=== PATIENT | female | born 1975 | race Caucasian/White ===

== ENCOUNTER 2025-08-30 04:11 | Observation (INO) | payer OTHER, SELFPAY ==
[2025-08-29 18:15] VITALS: BP 117/91
[2025-08-29] MEDS: ZOFRAN ODT (ORALLY DISINTEGRATING) 4 MG PO ×2 (18:23→18:29)
[2025-08-29] MEDS: OMNIPAQUE 50 ML PO (18:29)
[2025-08-29 18:44] LABS: Hematocrit 38.4 % (37.0-47.0); Hemoglobin 12.6 g/dL (12.0-16.0); Mean Corp Hgb Conc. 32.8 g/dL (33.0-37.0); Mean Corpuscular Volume 86.7 fL (81.0-99.0); Nucleated Red Blood Cells % 0 %; Platelet Count 327 10^3/uL (130-400); Red Cell Dist. Width 13.9 % (11.5-14.5)
[2025-08-29 18:56] LABS: ALT (SGPT) 33 U/L (0-35); AST (SGOT) 33 U/L (14-36); Albumin 3.9 g/dl (3.5-5.0); Alkaline Phosphatase 120 U/L (38-126); Blood Urea Nitrogen 17 mg/dl (7-17); Calcium 9.0 mg/dl (8.4-10.2); Carbon Dioxide 27 mmol/L (22-30); Chloride 103 mmol/L (98-107); Glucose 103 mg/dl (70-99); Lipase 59 U/L (23-300); Potassium 4.0 mmol/L (3.5-5.1); Sodium 137 mmol/L (135-145); Total Protein 7.2 g/dl (6.3-8.2); eGFR > 60.00
[2025-08-30] VITALS (8 sets, daily range): BP systolic 112–143; BP diastolic 80–93; BMI 31.9; BMI 31.7
[2025-08-30] MEDS: NSS 1000 IV (00:02)
--- NOTE | 2025-08-30 00:11 | ED.GENMED ---
History of Present Illness
<Shanon Ferreira PA-C - Last Filed: 08/30/25 07:55>
General
Chief Complaint: Abdominal Symptoms
Source: patient
Exam Limitations: none
Time Seen by Provider: 08/30/25 00:09
Nursing documentation reviewed up to this point in time: agreed with
History of Present Illness
History of Present Illness:
50-year-old female past medical history of polycystic kidney and liver disease who presents to the ER today with concerns of transient episode of left lower quadrant abdominal pain and vomiting. This occurred yesterday morning around 8:30 AM to 10
AM. She reports that her home nurse was visiting her and she had multiple episodes of vomiting and the nurse was concerned and called Dr. Hernandez who recommended going to the nearest ER to get imaging to rule out small bowel obstruction. She
reports that she had really intense pain earlier that has since resolved. She tolerated sips of water earlier today without vomiting. She has been passing gas. Pain minimal at this time. She is not had any fevers. No diarrhea. No chest pain or
shortness of breath. She denies any rectal bleeding or dark tarry stools. She spoke to the abdominal surgical fellow on-call who was involved with her case and she described what was going on and he recommended admission to [facility] for
continued management and did not feel that transfer was appropriate at this time as there is no surgical issue.
Past History
<Shanon Ferreira PA-C - Last Filed: 08/30/25 07:55>
Past History
ED Past Medical History: Other (Polycystic liver and kidney) and Other (Headaches)
ED Past Surgical History: Orthopedic (Ankle) and Other (Nose)
Social History
Tobacco: Non-smoker
Alcohol: None
Drug: None
Personal:
Living: with family
Review of Systems
<URSULA Covarrubias Last Filed: 08/30/25 07:55>
Review of Systems
All Other Systems: ROS reviewed and negative except as documented in HPI and ROS
Phy Exam
<Shanon Ferreira PA-C - Last Filed: 08/30/25 07:55>
Physical Exam
Physical Exam:
General: Patient is well appearing and in no acute distress; non-toxic
Skin: Warm and dry, no rashes or lesions
Head: Normocephalic, atraumatic
Eyes: Sclera non-icteric. EOMs intact.
Cardiac: Regular rate and rhythm, no murmur
Pulm: Normal respiratory effort, no wheezes, rales, or rhonchi
Abdomen: Large central and horizontal incisions noted in the abdomen with no purulent drainage, no surrounding erythema, minimal tenderness in the left lower quadrant, no palpable masses
Neuro: CN II-XII intact, no focal neurologic deficits.
Psychiatric: Appropriate mood and affect.
Course
<Shanon Ferreira PA-C - Last Filed: 08/30/25 07:55>
Orders/Labs/Results
Orders:
Orders
08/29/25 17:58
IV Insert/Care/Rem.- Treatment PRN
Iohexol [Omnipaque] See Protocol PO NOW STA
08/29/25 17:59
CT Abd/pel W Iv And Oral Contr Urgent
Comment:
Reason For Exam: abdominal pain, recent herni
08/29/25 18:20
Ondansetron Orally Disint [Zofran Odt (Orally Disintegrating)] 4 mg PO NOW STA
CR Abdomen - 1 View Urgent
Comment:
Reason For Exam: possible SBO, recent surgery, vomiting
08/29/25 18:25
Ondansetron Orally Disint [Zofran Odt (Orally Disintegrating)] 4 mg .ROUTE .[facility]
08/29/25 18:28
Ondansetron Orally Disint [Zofran Odt (Orally Disintegrating)] 4 mg PO NOW STA
08/29/25 18:34
Complete Blood Count/With Diff Urgent
Comprehensive Metabolic Panel Urgent
Lipase Urgent
08/29/25 23:55
0.9% Sodium Chloride 1000 ml [Nss] 1,000 ml IV 500 mls/hr
08/30/25 02:33
Sumatriptan Succinate [Imitrex] 50 mg PO NOW STA
08/30/25 04:05
Admit/Transfer Patient As Directed
Co-Sign Provider:
Level of Care: Observation services
Assign to:: Medical/Surgical
Physician / Group: Vincent
Diagnosis: Partial SBO
08/30/25 04:06
Code Status As Directed
Resuscitation Status: Full Code
PRN Pain Medication Management As Directed
May give lesser potent ordered pain med per pt: Yes
preference::
Protocol:: Medication orders for pain may be administered in a
manner that supports deferring to patient preference
when the pt is:
- Requesting an ordered lesser potent pain medication.
Least to most potent pain medications are defined
as: acetaminophen < NSAID < tramadol < opioids
(morphine, oxycodone, hydromorphone).
- Requesting a lesser dose of the same medication IF
ORDERED.
- Requesting a less intrusive route of administration
if both routes are prescribed by the provider (PO <
IV).
08/30/25 04:08
Ketorolac [Toradol] 10 mg IV NOW STA
Metoclopramide [Reglan] 5 mg IV NOW STA
08/30/25 04:43
Ondansetron Injectable [Zofran] 4 mg IV Q6HPRN PRN
08/30/25 04:43
SURGICAL CONSULT Routine
Consulting Provider: Rivera Shelton
Was physician already notified: Yes
Reason for consult: SBO
Activity As Directed
Activity Level: Ambulate
I/O [Intake/ Output] As Directed
Frequency: Per unit guidelines
Pneumatic Compression Sleeves As Directed
Type: Knee high
Vital Signs As Directed
Frequency: Per unit guidelines
Oxygen Therapy [O2 Therapy] [RESP] Routine
Titrate/Wean O2 to maintain O2 sat greater than (%): 94
DX Deep Vein Thrombosis Video Routine
08/30/25 05:00
Lactated Ringers [Lr] 1,000 ml IV 100 mls/hr
08/30/25 05:24
Basic Metabolic Panel IN AM
Complete Blood Count/No Diff IN AM
08/30/25 Breakfast
Clear Liquid
At Your Request: Limited Participation
Acetaminophen [Tylenol] 650 mg PO Q4HPRN PRN
08/30/25 08:00
Pantoprazole [Protonix IV] 40 mg IV DAILY
08/30/25 10:00
Ketorolac [Toradol] 10 mg IV Q6HPRN PRN
Abnormal Lab Results
08/29/25
18:34
WBC 11.2 H 10^3/uL
(4.8-10.8)
MCHC 32.8 L g/dL
(33.0-37.0)
Abs Immat Gran (auto) 0.1 H 10^3/uL
(0-0.05)
Absolute Neuts (auto) 7.6 H 10^3/uL
(1.4-6.5)
Absolute Monos (auto) 0.9 H 10^3/uL
(0.1-0.6)
Lymphocytes % 20.4 L %
(20.5-51.1)
Glucose 103 H mg/dl
(70-99)
08/29/25 18:34
08/29/25 18:34
Vital Signs
Initial and Last Documented VS:
Initial Vital Signs
Temp Pulse Resp BP Pulse Ox
98.7 F 108 17 117/91 97
08/29/25 18:15 08/29/25 18:15 08/29/25 18:15 08/29/25 18:15 08/29/25 18:15
Last Documented Vital Signs
Temp Pulse Resp BP Pulse Ox
98.7 F 108 16 130/93 94
08/29/25 18:15 08/29/25 18:15 08/30/25 05:27 08/30/25 02:00 08/30/25 03:15
<Rossy Ontiveros MD - Last Filed: 08/30/25 01:23>
Orders/Labs/Results
Orders:
Orders
08/29/25 17:58
IV Insert/Care/Rem.- Treatment PRN
Iohexol [Omnipaque] See Protocol PO NOW STA
08/29/25 17:59
CT Abd/pel W Iv And Oral Contr Urgent
Comment:
Reason For Exam: abdominal pain, recent herni
08/29/25 18:20
Ondansetron Orally Disint [Zofran Odt (Orally Disintegrating)] 4 mg PO NOW STA
CR Abdomen - 1 View Urgent
Comment:
Reason For Exam: possible SBO, recent surgery, vomiting
08/29/25 18:25
Ondansetron Orally Disint [Zofran Odt (Orally Disintegrating)] 4 mg .ROUTE .[facility]
08/29/25 18:28
Ondansetron Orally Disint [Zofran Odt (Orally Disintegrating)] 4 mg PO NOW STA
08/29/25 18:34
Complete Blood Count/With Diff Urgent
Comprehensive Metabolic Panel Urgent
Lipase Urgent
08/29/25 23:55
0.9% Sodium Chloride 1000 ml [Nss] 1,000 ml IV 500 mls/hr
08/30/25 02:33
Sumatriptan Succinate [Imitrex] 50 mg PO NOW STA
08/30/25 04:05
Admit/Transfer Patient As Directed
Co-Sign Provider:
Level of Care: Observation services
Assign to:: Medical/Surgical
Physician / Group: Vincent
Diagnosis: Partial SBO
08/30/25 04:06
Code Status As Directed
Resuscitation Status: Full Code
PRN Pain Medication Management As Directed
May give lesser potent ordered pain med per pt: Yes
preference::
Protocol:: Medication orders for pain may be administered in a
manner that supports deferring to patient preference
when the pt is:
- Requesting an ordered lesser potent pain medication.
Least to most potent pain medications are defined
as: acetaminophen < NSAID < tramadol < opioids
(morphine, oxycodone, hydromorphone).
- Requesting a lesser dose of the same medication IF
ORDERED.
- Requesting a less intrusive route of administration
if both routes are prescribed by the provider (PO <
IV).
08/30/25 04:08
Ketorolac [Toradol] 10 mg IV NOW STA
Metoclopramide [Reglan] 5 mg IV NOW STA
08/30/25 04:43
Ondansetron Injectable [Zofran] 4 mg IV Q6HPRN PRN
08/30/25 04:43
SURGICAL CONSULT Routine
Consulting Provider: Rivera Shelton
Was physician already notified: Yes
Reason for consult: SBO
Activity As Directed
Activity Level: Ambulate
I/O [Intake/ Output] As Directed
Frequency: Per unit guidelines
Pneumatic Compression Sleeves As Directed
Type: Knee high
Vital Signs As Directed
Frequency: Per unit guidelines
Oxygen Therapy [O2 Therapy] [RESP] Routine
Titrate/Wean O2 to maintain O2 sat greater than (%): 94
DX Deep Vein Thrombosis Video Routine
08/30/25 05:00
Lactated Ringers [Lr] 1,000 ml IV 100 mls/hr
08/30/25 05:24
Basic Metabolic Panel IN AM
Complete Blood Count/No Diff IN AM
08/30/25 Breakfast
Clear Liquid
At Your Request: Limited Participation
Acetaminophen [Tylenol] 650 mg PO Q4HPRN PRN
08/30/25 08:00
Pantoprazole [Protonix IV] 40 mg IV DAILY
08/30/25 10:00
Ketorolac [Toradol] 10 mg IV Q6HPRN PRN
Abnormal Lab Results
08/29/25
18:34
WBC 11.2 H 10^3/uL
(4.8-10.8)
MCHC 32.8 L g/dL
(33.0-37.0)
Abs Immat Gran (auto) 0.1 H 10^3/uL
(0-0.05)
Absolute Neuts (auto) 7.6 H 10^3/uL
(1.4-6.5)
Absolute Monos (auto) 0.9 H 10^3/uL
(0.1-0.6)
Lymphocytes % 20.4 L %
(20.5-51.1)
Glucose 103 H mg/dl
(70-99)
08/29/25 18:34
08/29/25 18:34
Vital Signs
Initial and Last Documented VS:
Initial Vital Signs
Temp Pulse Resp BP Pulse Ox
98.7 F 108 17 117/91 97
08/29/25 18:15 08/29/25 18:15 08/29/25 18:15 08/29/25 18:15 08/29/25 18:15
Last Documented Vital Signs
Temp Pulse Resp BP Pulse Ox
98.7 F 108 16 130/93 94
08/29/25 18:15 08/29/25 18:15 08/30/25 05:27 08/30/25 02:00 08/30/25 03:15
<Shanon Ferreira PA-C - Last Filed: 08/30/25 07:55>
MDM/Problems Addressed
Differential Diagnosis Includes:
ddx include SBO, diverticulitis, LBO, gastroenteritis, intra-abdominal abscess
MDM/Problems Addressed:
50-year-old female past medical history of polycystic kidney and liver disease who presents to the ER today with concerns of transient episode of left lower quadrant abdominal pain and vomiting. This occurred yesterday morning around 8:30 AM to 10
AM. She is status post 7 days large ventral hernia repair. She was found to have a partial/developing small bowel obstruction. At this time, she is not vomiting, has minimal pain, and is passing gas. I spoke to Lalo mackey and Dr. Chaidez on
patient's surgical team who is a GI fellow feels that patient is not an appropriate candidate for transfer to [facility] because there is no emergent surgical issue and he recommends admission to [facility]. I spoke to
general surgery on-call Dr. Arrington and he was okay with us admitting patient here to medicine. No indication for NG tube at this time. ED attending made aware. Patient referred for admission
Chronic conditions affecting care:
Brain aneurysm, polycystic kidney and liver disease
<Shanon Ferreira PA-C - Last Filed: 08/30/25 07:55>
*Pulse Oximetry
SaO2: 97
Oxygen Mode of Delivery: Room air
Patient hypoxic: no
*Critical Care Note
Total Time (30-74mins, 75-104mins- exclusive of procedures): Not Applicable
Data Reviewed
Review of Other/Old Records Reveals: Records (Reviewed colonoscopy from 03/26/[address] Das, patient was found to have a polyp that was removed)
Source: patient and records
ED Attending Note
<Shanon Ferreira PA-C - Last Filed: 08/30/25 07:55>
-
Portions of this chart may have been created with voice recognition software.� Occasional wrong word or��sound alike� substitutions may have occurred due to the inherent limitations of voice recognition software.
<Rossy Ontiveros MD - Last Filed: 08/30/25 01:23>
ED Attending Note
Patient seen and examined by attending physician: Yes
I performed the substantive portion of visit, reviewed & personally made and approve the management plan that is documented in note by myself or CHARLOTTE.: Yes
ED Attending Note:
I have seen and evaluated the patient with a [id number] encounter. I have spoken to the [CHARLOTTE] and involved in the medical history, the physical exam, medical decision making.
Evaluation and management service: agree unless noted differently below.
Results interpretation: agree unless noted differently below.
50-year-old woman presenting to the emergency department after ventral hernia repair presenting to the emergency department with vomiting. She talked to her surgeons who told her to go to the emergency department for evaluation to rule out SBO. On
my evaluation patient is resting comfortably. Abdomen is nondistended nontender. Her vomiting has improved. Patient does state that she feels much better than earlier. CT scan obtained does show developing or partial obstruction. Will discuss
with patient's surgeon as patient will need admission.
Discharge Plan
Departure
Patient Disposition: Admit
Date of Disposition: 08/30/25
Time of Disposition: 02:10
Admit to: Med/Surg
Presentation/result/management discussed w/ accepting MD/DO: Hospitalist
Patient with high blood pressure during this ER visit?: Yes
Condition: Fair
Discharge Problem:
Small bowel obstruction, partial
Interventions
Interventions:
*General Assessment Last Done: 08/29/25 18:20
*Neglect/Abuse Screening Last Done: 08/29/25 18:20
*ED COVID-19 Vaccine History Last Done: 08/29/25 18:20
*ED Influenza Vaccine History Last Done: 08/29/25 18:20
[facility] Fall Risk Assessment Tool Last Done: 08/30/25 00:40
*Risk Screen - Suicide (C-SSRS) Last Done: 08/29/25 18:20
RU-Yqnfmz-Ifhhlxhvor Assessment Last Done: 08/30/25 05:26
[2025-08-30] MEDS: IMITREX 50 MG PO (02:44)
--- NOTE | 2025-08-30 04:09 | HPS.HSE ---
Family Physician
-
Family Physician: INTERVIEWE UNKNOWN - PT NOT
Chief Complaint
-
Abd Pain, N/V
History of Present Illness
Patient is a 50y F with PMH significant for polycystic disease and migraines who presents to ED complaining of abdominal pain and N/V. Patient underwent complicated ventral hernia repair at [place] on 08/22/[address] Hernandez. She states that she
was recovering well until last PM when she developed LLQ abdominal pain. She woke around 12:30 in the AM with nausea and had innumerable episodes of emesis (food and bilious material) until around 8:30 AM. At that time her nausea and pain both
started to improve. She has since been able to tolerate water intake without recurrent N/V. She states that she has passed some flatus today - but no BM.
She spoke with her VN and then her physicians at [facility] and was advised to present to the ED for further evaluation.
CT done in the ED this evening shows dilated loops of small bowel c/w obstruction with some distal contrast seen. Transition point in the L mid-abdomen.
Medical History
Past Medical History
Past Medical History: Reports Other
Additional Past Medical History:
Polycystic Liver Disease
Polycystic Kidney Disease
Cerebral / Carotid Aneurysm
Migraine Headaches
Past Surgical History: Reports Other
Additional Past Surgical History:
Complicated Ventral Hernia Repair 08/22/25 at [place]
Partial Hepatic Resection
Ventral Hernia Repair
Left Ankle Surgery
Septoplasty
Social History
Tobacco: Non-smoker
Alcohol: None
Drug: None
Family History
Family History: Not pertinent
Allergies / Home Medications
Allergies reflects when Allergies were last updated in [facility].
Home Medications with original date entered in [facility]
Allergy/Medication List:
Allergies
Allergy/AdvReac Type Severity Reaction Status Date / Time
iodine Allergy Unknown Verified 08/29/25 18:17
Home Medications
cetirizine 10 mg tablet 10 mg PO DAILY 08/30/25
lisinopril 10 mg tablet 10 mg PO DAILY 08/30/25
mometasone 50 mcg/actuation nasal spray 2 spray intranasal DAILY 08/30/25
omeprazole 20 mg capsule,delayed release 20 mg PO DAILY 08/30/25
riboflavin (vitamin B2) 400 mg tablet 400 mg PO DAILY 08/30/25
zolmitriptan 5 mg nasal spray 5 mg intranasal DAILYPRN PRN Migraine 08/30/25
Review of Systems
-
History Source: Patient
A 12 point ROS was completed and negative except as noted: Yes
Constitutional: Denies Fever, Fatigue or Chills
Respiratory: Denies Cough or Trouble Breathing
Cardiac: Denies Chest Pain or Palpitations
Abdomen/GI: Reports Abdominal Pain, Nausea and Vomiting; Denies Diarrhea, Bloody Stools or Black Stools
: Denies Dysuria or Frequency
Musculoskeletal: Denies Joint Pain or Edema
Neurological: Denies Dizzy or Headache
Psych: Denies Depression or Anxiety
Physical Exam
Vital Signs
Vital Signs
Temp Pulse Resp BP Pulse Ox
98.7 F 108 18 130/93 94
08/29/25 18:15 08/29/25 18:15 08/30/25 03:22 08/30/25 02:00 08/30/25 03:15
Physical Exam
General: Other (50y F in no acute distress.)
HEENT: Moist mucous membranes and PERRLA
Respiratory: Clear; No Wheezes, Rales or Rhonchi
Cardiac: S1/S2 and Regular Rhythm; No Murmur
GI: Other (Soft, positive bowel sounds. No focal tenderness. 'T' incision with overlying petrolatum gauze. Incisions C/D/I. RLQ LAURA drain with serosanguinous drainage.)
Musculoskeletal: No Clubbing, No Cyanosis and No Edema
Neuro: AO x 3
Laboratory Results
-
08/29/25 18:34
08/29/25 18:34
Laboratory Results
Total Bilirubin 0.9 mg/dl (0.2-1.3) 08/29/25 18:34
AST 33 U/L (14-36) 08/29/25 18:34
ALT 33 U/L (0-35) 08/29/25 18:34
Alkaline Phosphatase 120 U/L (38-126) 08/29/25 18:34
Lipase 59 U/L (23-300) 08/29/25 18:34
Impression/Plan
-
A/P: Patient is a 50y F with PMH significant for polycystic liver and kidney disease who is s/p recent complicated ventral hernia repair and presents to ED for evaluation of abdominal pain and N/V that occurred 24 hours ago.
SBO / pSBO
s/p Complicated Ventral Hernia Repair at [place] 08/22/25
- Observe overnight for further evaluation and treatment.
- Patient is symptom-free at present. Tolerated water throughout the day today without additional N/V.
- No further LLQ pain.
- CT this evening shows dilated loops of small bowel with transition in the LLQ - contrast is seen distal to this.
- Continue to monitor.
- Clear liquids as tolerated.
- IVFs, pain control, supportive care.
- Surgery evaluation.
- Continue post-op dressing care, etc.
Migraine Headaches
- Patient with developing migraine secondary to N/V, volume losses, etc.
- Supportive care / PRN medications.
- IVF support as noted above.
Polycystic Kidney Disease
Polycystic Liver Disease
- Stable. s/p remote partial hepatic resection.
Carotid Aneurysm
- Stable x 5 years.
DVT Prophylaxis: SCDs
Code Status: Full
[2025-08-30] MEDS: TORADOL 10 MG IV (04:29)
[2025-08-30] MEDS: REGLAN 5 MG IV (04:29)
[2025-08-30] MEDS: LR 1000 IV ×2 (05:25→17:11)
[2025-08-30 06:11] LABS: Blood Urea Nitrogen 13 mg/dl (7-17); Calcium 8.0 mg/dl (8.4-10.2); Carbon Dioxide 22 mmol/L (22-30); Chloride 106 mmol/L (98-107); Estimated Creatinine Clearance 108 ml/min; Glucose 84 mg/dl (70-99); Potassium 3.7 mmol/L (3.5-5.1); Sodium 134 mmol/L (135-145); eGFR > 60.00
--- NOTE | 2025-08-30 08:39 | W.PN.HOSP.TC ---
Today's Communication/Plan
-
Surgery eval
Assessment / Plan
Assessment / Plan
Physical exam:
General: Well Developed, Well Nourished and No Apparent Distress
HEENT: Normocephalic, Atraumatic and Moist Mucous Membranes
Respiratory: Clear to Auscultation; Negative Wheezes, Rales or Rhonchi
Cardiac: Regular Rhythm and S1/S2
GI: Soft, Nontender and distended
Musculoskeletal: No Clubbing, No Cyanosis and No Edema
Neuro: Awake, Alert and Oriented, no neurological deficits
Psych: Calm
A/P:
SBO / pSBO
s/p Complicated Ventral Hernia Repair at [place] 08/22/25
- Observe overnight for further evaluation and treatment.
- Patient is symptom-free at present. Tolerated water throughout the day today without additional N/V.
- No further LLQ pain.
- CT this evening shows dilated loops of small bowel with transition in the LLQ - contrast is seen distal to this.
- Continue to monitor.
- Clear liquids as tolerated.
- IVFs, pain control, supportive care.
- Surgery evaluation.
- Continue post-op dressing care, etc.
Migraine Headaches
- Patient with developing migraine secondary to N/V, volume losses, etc.
- Supportive care / PRN medications.
- IVF support as noted above.
Polycystic Kidney Disease
Polycystic Liver Disease
- Stable. s/p remote partial hepatic resection.
Carotid Aneurysm
- Stable x 5 years.
DVT Prophylaxis: SCDs
Code Status: Full
Anticipated Discharge: 24 - 48 hours
Subjective/Interval History
-
Date of Service: August 30, 2025
Patient feels better overall, passing gases. No nausea vomit
Objective Data
-
Labs:
Laboratory Results
08/30/25
05:24
WBC Pending
Hgb Pending
Hct Pending
Plt Count Pending
Sodium 134 L
Potassium 3.7
Chloride 106
Carbon Dioxide 22
BUN 13
Creatinine 0.6
Glucose 84
Calcium 8.0 L
Vital Signs:
Vital Signs
Temp Pulse Resp BP Pulse Ox
98.7 F 68 16 112/80 95
08/29/25 18:15 08/30/25 08:03 08/30/25 08:03 08/30/25 08:00 08/30/25 08:00
[2025-08-30 08:43] LABS: Hematocrit 31.6 % (37.0-47.0); Hemoglobin 10.6 g/dL (12.0-16.0); Mean Corp Hgb Conc. 33.5 g/dL (33.0-37.0); Mean Corpuscular Volume 85.6 fL (81.0-99.0); Platelet Count 210 10^3/uL (130-400); Red Cell Dist. Width 13.9 % (11.5-14.5)
[2025-08-30] MEDS: PROTONIX IV 40 MG IV (08:54)
--- NOTE | 2025-08-30 09:50 | CON.GS ---
Addendum entered and electronically signed by Dale Arrington MD 08/30/25 11:15:
I saw and examined the patient.
The [employer] Worker's note was reviewed and I agree with the note.
Comment: About 1 week s/p open repair recurrent ventral hernia p/w n/v now improved, pt reports passing flatus. Pain also improved. Mild ttp on exam, minimal distention, incisions cdi, ab binder in place, drain ss. labs and vitals OK. CT with pSBO
without signs of bowel threat, f/u KUB with contrast in colon and mild residual sb distention. Plan to trial CLD
Original Note:
Consultation
-
Date/Time Consultation Requested: 08/30/25 4:43
Date/Time Consultation Performed: 08/30/25 9:50
Requesting Provider: Hiren Kaur DO
Performing Provider: Dale Arrington
Reason for Consultation: Small bowel obstruction
Medical History
-
Chief Complaint: Abdominal Pain with Nausea/Vomiting
History of Present Illness:
This is a 50 y/o female with pmhx of polycystic kidney and liver disease, migraines. She has a history of liver resection at the [facility] in 08/2020. This is her only known abdominal surgery prior to 08/22/2025, when she underwent a complicated,
open ventral hernia repair at [facility] with Dr. Hernandez. She was hospitalized from 08/22-08/25, at which point she was discharged to home. She states she was doing well at home until the evening of 08/28 when she began to experience sharp pain
across her belly around where her belly button used to be, L>R. On 08/29 she began to vomit multiple times per hour for several hours between just 12:30AM until around 8AM. Eventually she stopped vomiting, at which point she had significant midline
tenderness. She spoke to her surgeon Dr. Hernandez and at their recommendation reported to the ED late in the evening on 08/29/2025 for further evaluation.
Today, she reports still having some pain but it is significantly reduced compared to prior days. She has passed gas today. She is currently free of nausea/vomiting. She has not yet eaten this morning as of the time of my interview with her.
Past Medical History
Past Medical History: Other (Polycystic Kidney Disease, Polycystic Liver Disease, Migraines, Carotid Aneurysm)
Past Surgical History: Hernia Repair (Complicated Ventral Hernia Repair on 08/22/2025) and Other (Liver Resection at [facility] 08/2020)
Social History
Tobacco: Non-Smoker
Alcohol: None
Drug: None
Living: With Family
Family History
Family History: Reviewed & Not Pertinent
Allergies / Home Medications
Allergy/AdvReac Type Severity Reaction Status Date / Time
iodine Allergy Unknown Verified 08/29/25 18:17
�Medication �Instructions �Recorded �Confirmed �Type
acetaminophen 325 mg tablet 650 mg PO QID Anti-Inflammatory 08/30/25 08/30/25 History
(Tylenol)
cetirizine 10 mg tablet 10 mg PO HS Allergies 08/30/25 08/30/25 History
lisinopril 10 mg tablet 10 mg PO DAILY 08/30/25 08/30/25 History
magnesium oxide 400 mg PO DAILY Supplement 08/30/25 08/30/25 History
mometasone 50 mcg/actuation nasal 2 spray intranasal HS Allergies 08/30/25 08/30/25 History
spray
omeprazole 20 mg capsule,delayed 20 mg PO DAILY 08/30/25 08/30/25 History
release
ondansetron HCl 8 mg tablet 8 mg PO Q12H nausea 08/30/25 08/30/25 History
polyethylene glycol 3350 17 gram 17 g PO DAILY Constipation 08/30/25 08/30/25 History
oral powder packet (Miralax)
riboflavin (vitamin B2) 400 mg 400 mg PO DAILY 08/30/25 08/30/25 History
tablet
sennosides 8.6 mg tablet (senna) 8.6 mg PO BID Constipation 08/30/25 08/30/25 History
therapeutic multivitamin 1 tab PO DAILY Supplement 08/30/25 08/30/25 History
zolmitriptan 5 mg nasal spray 5 mg intranasal DAILYPRN PRN 08/30/25 08/30/25 History
Migraine
Review of Systems
-
History Source: Patient
Constitutional: No Symptoms
Respiratory: No Symptoms
Cardiac: No Symptoms
Abdomen/GI: Abdominal Pain, Nausea and Vomiting
Musculoskeletal: No Symptoms
Neurological: Headache
Hematologic/Lymphatic: No Symptoms
A 10 point review of systems was completed, and was negative except as per HPI.
Physical Exam
Vital Signs
Temp Pulse Resp BP Pulse Ox
98.7 F 68 16 113/82 96
08/29/25 18:15 08/30/25 08:03 08/30/25 08:03 08/30/25 09:01 08/30/25 09:01
08/29/25 08/30/25 08/31/25
06:59 06:59 06:59
Actual Weight 79 kg
Body Mass Index (BMI) 31.9
Lab Results
08/30/25 05:24
08/30/25 05:24
WBC 7.3 10^3/uL (4.8-10.8) 08/30/25 05:24
Hgb 10.6 g/dL (12.0-16.0) L 08/30/25 05:24
Hct 31.6 % (37.0-47.0) L 08/30/25 05:24
Plt Count 210 10^3/uL (130-400) D 08/30/25 05:24
Abs Immat Gran (auto) 0.1 10^3/uL (0-0.05) H 08/29/25 18:34
Neutrophils % 68.1 % (42.2-75.2) 08/29/25 18:34
Physical Exam
General: Well Developed, Well Nourished, No Apparent Distress and Comfortable
HEENT: Normocephalic
GI: Soft, Non Distended, Tender (Some epigastric and right sided tenderness on palpation) and Other (There is a horizontal incision across the upper abdomen along with a vertical incision descending down towards the pubic bone. The area is dry and
clear of any signs of infection. It is covered by surgical bandages and a compression wrap)
Rectal: Deferred by Provider
Skin: Warm and Dry
Neuro: Awake, Alert and Oriented
Psych: Calm
Assessment / Plan
-
Assessment:
This is a 50 y/o female with pmhx of polycystic kidney and liver disease, migraines with history of liver resection in 08/2020 and recent complicated ventral hernia repair on 08/22/2025 at [facility] who presented to the ED on 08/29 with findings
concerning for partial small bowel obstruction.
Plan:
Partial Small Bowel obstruction
S/p Complicated Open Ventral Hernia Repair on 08/22/[address] Hernandez, history of liver resection in 2019. No other known bowel surgeries.
WBC 11.2 in the ED, now normal
CT Abdomen/Pelvis 08/29: Postoperative changes within the anterior abdominal wall with a small focus of extraperitoneal free air which is likely postoperative in nature. There are multiple mildly dilated loops of proximal small bowel within
apparent transition point in the left midabdomen. A small volume of oral contrast does extend distal to this, however this is felt to represent a likely developing or partial obstruction. There is associated mural thickening of the small bowel at
this level for which enteritis or reactive inflammatory changes are possible. Small volume abdominopelvic free fluid. No intraperitoneal free air.
X-ray Abdomen 08/29: Contrast material has passed into the colon. No disproportionally dilated loops of small bowel or air-fluid levels to confirm a small bowel obstruction by radiograph. Mild excreted contrast material in the urinary bladder
lumen. Cholecystectomy clips in the right upper quadrant.
No indication for surgical intervention at this time. As vomiting has resolved, no indication for bowel decompression.
Recommend slowly advancing diet as tolerated, beginning with clear liquids this morning
Continue IV fluids, currently Lactated Ringers
Continue Tylenol 650mg Q4H PRN for mild pain, Ketorolac 10mg Q6H PRN for moderate pain
Continue Ondansetron 4mg Q6H PRN for nausea/vomiting, Pantoprazole 40mg
Continue post-op dressing change
Continue to monitor for symptoms including worsening abdominal pain, fevers, nausea or vomiting
--- NOTE | 2025-08-30 12:36 | EDCM ---
Reviewed chart and met with pt bedside in ED. Lives with her and 3 sons in [place] .
Independent in ADLs, personal care and ambulation at baseline. No assistive devices.
History includes Polycystic kidney and liver disease, migraines, had ventral hernia repair at [place] on 08/22.
Confirms prescription coverage.
Current with [facility], no hx SNF
Was not able to obtain PCP or pharmacy as Dr Botello came in to evaluate pt.
Anticipate discharge home, CM will continue to follow for all discharge planning needs.
[2025-08-31] MEDS: LR 1000 IV (03:48)
[2025-08-31 07:05] VITALS: BP 132/74
--- NOTE | 2025-08-31 07:23 | W.PN.GS2 ---
Addendum entered and electronically signed by Ritchie Muñoz MD 08/31/25 10:53:
I was physically present and personally performed the louise portions of the surgical evaluation and/or procedure with the resident. I discussed the findings, reviewed the resident�s note, and confirmed the medical decision-making. I provided direct
supervision as required and agree with the assessment and plan as documented with the following additions/corrections:
Tolerating clear liquid diet, passing flatus and 2 bowel movements this morning.
No recurrent abdominal pain
No worsening abdominal bloating or distention
No nausea or vomiting
Appetite improving
AFVSS
NAD AAO x 3
ABD: Soft, mildly distended, minimal incisional tenderness -appropriate for recent herniorrhaphy
Incision sites with iodoform dressing. No erythema, no open wounds, no active drainage
LAURA with scant serosanguineous fluid
Assessment/plan: 50-year-old female with early postop pSBO versus ileus
Clinically and radiographically resolving
Low residue diet and discharge if tolerates p.o. challenge
Dietary counseling provided -smaller portions/meal spread out throughout the day, avoid high fibrous food, MiraLAX daily for bowel regiment
Original Note:
Today's Communication / Plan
-
Diet changed to low residue
If tolerated consider d/c this afternoon
Upon discharge, recommend miralax for stool softener without senna
Assessment / Plan
-
Assessment:
This is a 50 y/o female with pmhx of polycystic kidney and liver disease, migraines with history of liver resection in 08/2020 and recent complicated ventral hernia repair on 08/22/2025 at [facility] who presented to the ED on 08/29 with findings
concerning for partial small bowel obstruction.
Plan:
Partial Small Bowel obstruction
S/p Complicated Open Ventral Hernia Repair on 08/22/[address] Hernandez, history of liver resection in 2019. No other known bowel surgeries.
WBC 11.2 in the ED, now normal
CT Abdomen/Pelvis 08/29: Postoperative changes within the anterior abdominal wall with a small focus of extraperitoneal free air which is likely postoperative in nature. There are multiple mildly dilated loops of proximal small bowel within
apparent transition point in the left midabdomen. A small volume of oral contrast does extend distal to this, however this is felt to represent a likely developing or partial obstruction. There is associated mural thickening of the small bowel at
this level for which enteritis or reactive inflammatory changes are possible. Small volume abdominopelvic free fluid. No intraperitoneal free air.
X-ray Abdomen 08/29: Contrast material has passed into the colon. No disproportionally dilated loops of small bowel or air-fluid levels to confirm a small bowel obstruction by radiograph. Mild excreted contrast material in the urinary bladder
lumen. Cholecystectomy clips in the right upper quadrant.
Continue to slowly advance diet as tolerated. Changed diet to low residue today, if she tolerates this consider discharge from the hospital this afternoon with instructions to continue on low residue diet and to return to the hospital if her
symptoms return
Continue Tylenol 650mg Q4H PRN for mild pain, Ketorolac 10mg Q6H PRN for moderate pain
Continue Ondansetron 4mg Q6H PRN for nausea/vomiting, Pantoprazole 40mg
Continue post-op dressing change
Continue to monitor for symptoms including worsening abdominal pain, fevers, nausea or vomiting
Subjective Data
-
Date of Service: August 31, 2025
Patient was sitting comfortably when I arrived. She has tolerated clear liquids well yesterday into this morning, and is now growing bored with them. She would like her diet to be advanced. She has had no recurrence of pain, nausea or vomiting. She
has had no fevers or chills. Last bowel movement was this morning, which was soft but not loose. She has an appointment on Thursday to have her surgical drain removed.
Objective Data
-
Intake and Output
08/30/25 08/31/25 09/01/25
06:59 06:59 06:59
Intake Total 1220 / 1220
Output Total
Balance 1200 / 1200
Intake:
Oral fluids 220 / 220
IV fluids (Total) 1000 / 1000
Output:
Drain Output (Total)
Right Shayne-Perez
Other:
Number of approximated MODERATE 3
amounts of urine
Vital Signs
Temp Pulse Resp BP Pulse Ox
98.2 F 76 18 136/81 97
08/30/25 23:25 08/30/25 23:25 08/30/25 23:25 08/30/25 23:25 08/30/25 23:25
Calcium 8.0 mg/dl (8.4-10.2) L 08/30/25 05:24
Total Bilirubin 0.9 mg/dl (0.2-1.3) 08/29/25 18:34
AST 33 U/L (14-36) 08/29/25 18:34
ALT 33 U/L (0-35) 08/29/25 18:34
Alkaline Phosphatase 120 U/L (38-126) 08/29/25 18:34
Total Protein 7.2 g/dl (6.3-8.2) 08/29/25 18:34
Albumin 3.9 g/dl (3.5-5.0) 08/29/25 18:34
Physical Exam
-
Cardiac: Heart regular rate and rhythm, normal S1 S2
Lungs: Clear to auscultation
GI: Midline surgical scar extending from pelvis to below xiphoid process and then extending outwards beneath the ribs. Hypoactive bowel sounds, No tenderness on palpation. Right sided surgical drain with very small amount of liquid.
Patient has a mendoza catheter: No
Patient has a central line: No
[2025-08-31] MEDS: PROTONIX IV 40 MG IV (08:11)
[2025-08-31] MEDS: NSS (PRESERVATIVE FREE) 10 ML IV (08:11)
--- NOTE | 2025-08-31 10:32 | W.PN.HOSP.TC ---
Today's Communication/Plan
-
Discharge planning today
Assessment / Plan
Assessment / Plan
Physical exam:
General: Well Developed, Well Nourished and No Apparent Distress
HEENT: Normocephalic, Atraumatic and Moist Mucous Membranes
Respiratory: Clear to Auscultation; Negative Wheezes, Rales or Rhonchi
Cardiac: Regular Rhythm and S1/S2
GI: Soft, Nontender and distended. Surgical postop findings.
Musculoskeletal: No Clubbing, No Cyanosis and No Edema
Neuro: Awake, Alert and Oriented, no neurological deficits
Psych: Calm
A/P:
SBO / pSBO
s/p Complicated Ventral Hernia Repair at [place] 08/22/25
-Improving
-Surgery advance to low residue diet today
- Discussed with surgeon and cleared for discharge if she tolerates
Migraine Headaches
- Patient with developing migraine secondary to N/V, volume losses, etc.
- Supportive care / PRN medications.
- IVF support as noted above.
Polycystic Kidney Disease
Polycystic Liver Disease
- Stable. s/p remote partial hepatic resection.
Carotid Aneurysm
- Stable x 5 years.
DVT Prophylaxis: SCDs
Code Status: Full
Anticipated Discharge: Today
Subjective/Interval History
-
Date of Service: August 31, 2025
Patient denies nausea or vomiting. Feels better overall. She had bowel movements as well today.
Objective Data
-
Labs:
Laboratory Results
08/31/25
07:36
WBC Pending
Hgb Pending
Hct Pending
Plt Count Pending
Sodium Pending
Potassium Pending
Chloride Pending
Carbon Dioxide Pending
BUN Pending
Creatinine Pending
Glucose Pending
Calcium Pending
Vital Signs:
Vital Signs
Temp Pulse Resp BP Pulse Ox
97.6 F 76 16 132/74 94
08/31/25 07:05 08/31/25 07:05 08/31/25 07:05 08/31/25 07:05 08/31/25 07:05
I&O
08/30/25 08/31/25 09/01/25
06:59 06:59 06:59
Intake Total 1220 / 1220
Output Total
Balance 1200 / 1200
--- NOTE | 2025-08-31 11:35 | W.DCSUMMARY ---
Discharge Summary
Discharge Data
Date of Admission: 08/30/25
Date of Discharge: 08/31/25
-
Pending Results: No
Hospital Course
Patient 50 years old female history of recent surgery for open ventral hernia repair on 08/22 and came back with abdominal pain nausea vomit and found to have partial small bowel obstruction. Surgery consulted. Patient was given IV fluids and
supportive care. Patient was started on clear liquid diet and was advanced slowly up to solid food with low residue diet. She tolerated advancement of diet without any problems and she became symptomatically improved. Surgery cleared her for
discharge. She will be discharged in stable condition today.
Discharge Plan
-
Patient Disposition: Home with Home Care
Discharge Diagnosis/Procedures: Partial small bowel obstruction.
Diet: Low Residue
Additional Diets: Small frequent meals throughout the day.
Activity: As tolerated
Blood Work: Please PCP to order CBC, BMP within 1 week
Instructions: Low-fiber diet
Referrals:
Primary care provider [Other] - in less than 1 week
UNKNOWN - PT NOT,INTERVIEWE [Family Provider]
Prescriptions:
Continued
lisinopril 10 mg tablet
10 mg PO DAILY
omeprazole 20 mg capsule,delayed release(DR/EC)
20 mg PO DAILY
zolmitriptan 5 mg spray,non-aerosol
5 mg INTRANASAL DAILYPRN PRN (Reason: Migraine)
riboflavin (vitamin B2) 400 mg tablet
400 mg PO DAILY
cetirizine 10 mg Tablet
10 mg PO HS
mometasone 50 mcg/actuation [place],Non-Aerosol
2 spray INTRANASAL HS
sennosides [senna] 8.6 mg Tablet
8.6 mg PO BID
acetaminophen [Tylenol] 325 mg Tablet
650 mg PO QID
polyethylene glycol 3350 [Miralax] 17 gram Powder In Packet
17 g PO DAILY
ondansetron HCl 8 mg Tablet
8 mg PO Q12H
therapeutic multivitamin Tablet
1 tab PO DAILY
magnesium oxide 400 mg magnesium Tablet
400 mg PO DAILY
Discharge Orders:
Discharge Patient (As Directed); Ordered 08/31/25
Ordered By: Andres Murray
Discharge Date and Time
Discharge Date/Time: 08/31/25 18:11
Print Language: HUNGARIAN
[2025-08-31 11:58] VITALS: BP 140/94
[2025-08-31] MEDS: LR IV (13:33)
[2025-08-31 15:00] VITALS: BP 136/96
--- NOTE | 2025-08-31 16:15 | CM ---
CM reviewed chart, attempted to see patient multiple times, patient on phone and unable to speak to CM.
Patient for d/c today. Patient current with [facility]- referral placed in [facility].
Reviewed with Nurse regarding patient concern with d/c- update to Physician on patient concerns.
CM will continue to follow.
Plan; home with resumption of care [facility]
--- NOTE | 2025-08-31 18:04 | PTCARENOTE ---
Reviewed discharge instructions with patient , verbalized understanding. Was able to reiterate importance of low residue diet and was provided with examples. Tolerated low residue diet, denied any pain or discomfort. Insisted on ambulating out
with .
== END 2025-08-31 18:11 | disposition home health service (06) ==
LOC: 4 WEST ACU 04:11
PROVIDERS: Emergency Medicine; ADMITTING PHYSICIAN Hospitalist; ATTENDING PHYSICIAN Hospitalist; EMERGENCY PHYSICIAN Student in an Organized Health Care Education/Training Program; OTHER PHYSICIAN Surgery
DX: K56.600 Partial intestinal obstruction, unspecified as to cause (principal); R10.32 Left lower quadrant pain; Q61.3 Polycystic kidney, unspecified; R11.10 Vomiting, unspecified; Q44.6 Cystic disease of liver; G43.909 Migraine, unspecified, not intractable, without status migrainosus; J98.11 Atelectasis; R18.8 Other ascites; I72.0 Aneurysm of carotid artery; Z90.49 Acquired absence of other specified parts of digestive tract; Z79.899 Other long term (current) drug therapy; Z88.8 Allergy status to other drugs, medicaments and biological substances; Z91.041 Radiographic dye allergy status; Z98.890 Other specified postprocedural states; Z79.51 Long term (current) use of inhaled steroids
CPT/HCPCS: 74018; 74177; 80048; 80053; 83690; 85025; 85027; 96360; 96361; 99285; G0378; Q9967